=== PATIENT | female | born 1995 | race Caucasian/White ===

== ENCOUNTER → 2017-08-13 | Outpatient (CLI) | payer BC ==
[~2017-08-13] MED LIST: BIRTH CONTROL; CIPR500T87 PO; METR500T PO
== END | disposition home or self-care (01) ==
LOC: RAD 08:30
PROVIDERS: ATTEND Internal Medicine Gastroenterology
DX: K50.818 Crohn's disease of both small and large intestine with other complication (principal); I34.0 Nonrheumatic mitral (valve) insufficiency; L02.92 Furuncle, unspecified; F34.1 Dysthymic disorder; L65.9 Nonscarring hair loss, unspecified; N83.209 Unspecified ovarian cyst, unspecified side; I10 Essential (primary) hypertension
CPT/HCPCS: 78264; A9541

== ENCOUNTER 2017-10-07 10:11 | Emergency (ER) | payer BC ==
[~2017-10-07] VITALS: Ht 152.4 cm; Wt 43.8 kg
[2017-10-07] MEDS ORDERED: morphine SULFATE 10 MG/ML, 1ML ONE (10:45)
[2017-10-07] MEDS ORDERED: FAMOTIDINE 20 MG/2 ML ONE (10:46)
[2017-10-07] MEDS ORDERED: ONDANSETRON 2MG/ML, 2ML ONE (10:46)
[2017-10-07] MEDS ORDERED: FAMOTIDINE 20 MG/2 ML IVP ONE (11:00)
[2017-10-07] MEDS ORDERED: morphine SULFATE 10 MG/ML, 1ML IVPush PRN (11:00)
[2017-10-07] MEDS ORDERED: ONDANSETRON 2MG/ML, 2ML IVPush ONE (11:00)
[2017-10-07 11:17] LABS: HEMATOCRIT 43.8 % (34.6-47.8); HEMOGLOBIN 14.8 g/dL (11.7-16.4); WHITE BLOOD COUNT 9.7 x10^3/uL (3.4-10)
[2017-10-07 11:29] LABS: ASPARTATE AMINO TRANSFERASE 15 U/L (15-37); BLOOD UREA NITROGEN 7 mg/dL (7-18)
[2017-10-07] MEDS ORDERED: SODIUM CHLORIDE 0.9% 1,000ML IVBOLUS ONE (11:30)
[2017-10-07 12:30] VITALS: BP 114/64
== END 2017-10-07 12:32 | disposition home or self-care (01) ==
LOC: ED 11:32
DX: K50.10 Crohn's disease of large intestine without complications (principal)
CPT/HCPCS: 36415; 80053; 81001; 83690; 84703; 85025; 87086; 93005; 96361; 96374; 96375; 99285; J2270; J2405; J7030; S0028